=== PATIENT | male | born 1985 ===

== ENCOUNTER → 2019-08-26 | Outpatient (REF) | payer OTHER ==
[2019-08-26 14:43] LABS: SEMEN APPEARANCE OPAQUE (OPAQUE); SEMEN VISCOSITY LIQUID (LIQUID); SEMEN VOLUME 2.5 ml (2.0-5.0)
[2019-08-26 14:44] LABS: WBC CONCENTRATION >1 M/ml (<=1 M/ml)
[2019-08-26 14:45] LABS: SPERM CONCENTRATION 5.2 M/ml (>=15.0)
== END ==
LOC: M LAB REF 12:39
DX: Z31.41 Encounter for fertility testing (principal)